=== PATIENT | female | born 1955 | race Caucasian/White ===

== ENCOUNTER 2018-03-07 11:03 | Inpatient (IN) ==
--- NOTE | 2018-03-07 14:34 | Internal Med Progress Note ---
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 Patient was transferred to this facility for rehabilitation due to her unstable gait and balance. Patient states that she has noticed a slight weakness to her right extremities over the past several weeks, during which time she has noticed that she has difficulty holding objects at times such as coffee cups and that her fine motor skills, such as writing have been worsening. Patient states that during that time period that she had had an accidental bump to the head and believe that she might of had a subdural hematoma and so she sought out medical evaluation. Patient was evaluated an 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 Patient states that she was seen at [place] where she had a biopsy performed and received cortical steroid treatment to reduce cerebral edema surrounding the brainstem lesion. Patient states that her pathology report remains pending at time of her discharge. She states that she believes that her balance and vision may have slightly worsened postoperatively. Patient states that her vision has had some changed over she has trouble focusing on her right lateral visual field, but denies any visual cut. She currently denies any discomforts or shortness of breath. Patient also denies any deficits in sensory or motor strength. - Constitutional Vitals: Temp Pulse Resp BP Pulse Ox 98.0 F 61 18 120/66 98 03/07/18 13:51 03/07/18 13:51 03/07/18 13:51 03/07/18 13:51 03/07/18 13:51 Consult Discharge Plan - Plan Referrals: Annie Solomon, [employer] H[employer]IES TEACHER [Primary Care Provider] -
--- NOTE | 2018-03-07 14:36 | Internal Med History&Physical ---
Date of Encounter: 03/07/18 Time of Encounter: 14:35 Assessment and Plan (1) Brain stem lesion Current visit: Yes Status: Acute Patient was admitted to this facility for rehabilitation due to her gait imbalance secondary to her brain stem lesion. 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 Patient was transferred [place] where she received corticosteroid therapy and had a biopsy performed. Pathology remains pending. Patient has had slight exacerbation of symptoms postoperatively and was transferred here for further therapy. No motor or sensory deficits noted on exam. Patient continues to have some issues with focusing on her right lateral filled, but no cuts noted patient was positive on Romberg's with imbalance noted almost mutely after closing her eyes. Noted some difficulty with finger to nose exam on her right extremity. Patient denies any other neurological deficits. Left occipital biopsy incision remains dry and intact. We will continue with current cortical steroids. Physical therapy evaluation pending. We will continue with current plan of care. (2) Arthritis Current visit: Yes Status: Acute No acute issues. Patient states history of arthritis and long-term use of Humira. 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 Patient was transferred from [facility] after being evaluated and treated. He states that over the past several weeks she has experienced difficulty with her balance and a slight right lateral visual deficit. Patient states that while at home she had experienced a bump to the head in January and later noticed that she does have difficulty with her balance. Patient states that she was also having difficulty with some coordination on the right side, resulting in difficulty in grasping and and fine motor movement, such as writing. She then went to see her physician thinking that she could possibly have had a intracranial bleed resulting from the bump of the head and the previous weeks. Patient had an MRI that was performed which showed a brainstem lesion and she was then transferred to [facility] for further evaluation and treatment. While at [place] she received cortical steroid therapy due to mild cerebral edema surrounding the lesion and later had a biopsy performed surgically performed. Patient states her lesion was deemed inoperable and she states that at time of discharge her pathology has not been resulted. Patient was transferred to this facility due to her gait imbalance for further rehabilitation by PT/OT. Patient states that her further treatment is pending her pathology per neurosurgery/oncology. Patient states that she believes postoperatively that her symptoms may have worsened slightly. She states that on her right lateral vision that she has some difficulty with focusing but denies any visual cut. Patient denies any motor deficits but states that she does have difficulty with some coordination on the right hand and with her balance. Patient currently denies any discomforts or shortness of breath. Patient denies any sensory deficits. Past Med Surg Social Fam HX - Past Medical History Medical history: arthritis Psychiatric history: no psych history - Social History Smoking Status: Current some day smoker Smokeless Tobacco Status: No Alcohol use: none Drug use: none Internal Medicine - H&P: Meds Humira Crohn's 03/22/15 [History] Ondansetron [Zofran] 8 mg PO TID PRN #9 tablet 03/22/15 [Rx] Vancomycin Oral Soln [Vancocin] 125 mg PO QID #40 mls 03/22/15 [Rx] metroNIDAZOLE [Flagyl] 500 mg PO BID #14 tablet 03/22/15 [Rx] 3 Allergy/AdvReac Type Severity Reaction Status Date / Time No Known Allergies Allergy Verified 03/22/15 11:38 All Systems PM: A 10-system review of systems was performed and is negative for pertinent findings except as documented above in the HPI. - Constitutional Constitutional: as per HPI, no chills, no fever(s), no night sweats - EENT Eyes: as per HPI, blurry vision, other visual disturbances, no change in vision , no discharge, no pain, no photophobia Ears: no ear discharge, no ear pain, no tinnitus Nose, mouth and throat: no dysphagia, no nasal discharge, no neck pain, no sore throat - Cardiovascular Cardiovascular ROS IM: as per HPI, no chest pain, no diaphoresis, no dyspnea, no lightheadedness, no palpitations, no syncope - Respiratory Respiratory: as per HPI, no cough, no dyspnea, no wheezing, no excessive phlegm production - Gastrointestinal Gastrointestinal: no abdominal pain, no diarrhea, no hematemesis, no hematochezia, no melena, no nausea, no vomiting - Genitourinary Genitourinary: no change in urinary stream, no dysuria, no flank pain, no hematuria - Musculoskeletal Musculoskeletal ROS IM: as per HPI, no numbness, no tingling - Integumentary Integumentary IM: no rash, no unusual bruising - Neurological Neurological ROS: as per HPI, no confusion, no convulsions, no focal weakness, no numbness, no tingling, no tremor(s) - Hematologic/Lymphatic Hematologic/Lymphatic: no easy bruising - Constitutional Vitals: Temp Pulse Resp BP Pulse Ox 98.0 F 61 18 120/66 98 03/07/18 13:51 03/07/18 13:51 03/07/18 13:51 03/07/18 13:51 03/07/18 13:51 General appearance: Present: A&O X 3, pleasant - Head Head exam: Present: atraumatic, normocephalic - Eye Eye exam: Present: PERRL, conjuntiva pink, sclera anicteric Pupils: Present: PERRL - Neck Neck exam general surgery: Present: supple, trachea midline. Absent: lymphadenopathy Additional comments: Patient has a small incision to the left lower occipital area which is dry and intact. No erythema or ecchymosis noted surrounding the incision. - Respiratory Respiratory exam: Present: CTAB. Absent: accessory muscle use, rales, rhonchi, wheezes - Cardiovascular Cardiovascular exam: Present: RRR, +S1, +S2. Absent: diastolic murmur, gallop, rubs, systolic murmur - GI/Abdominal GI/Abdominal exam: Present: normal bowel sounds, soft, no peritoneal signs. Absent: distended, tenderness - Extremities Exam Extremities exam: Present: warm, radial pulses palpable and symmetrical. Absent : calf tenderness, cyanotic, pedal edema - Neurological Exam Neurological exam: Present: CN II-XII intact, oriented X3. Absent: pronater drift, facial droop, speech deficit Additional comments: CN 2-12 intact. Patient BAL with equal 5/5 strength. Speech is clear and appropriate. No facial droop. Tongue is midline. Noted to have some difficulty with finger to nose coordination on her right. PERRLA 3mm brisk. No visual field cut noted. No sensory deficit noted. Patient shows positive Romberg, showing imbalance almost immediately after closing her eyes. - Skin Skin exam: Present: dry, intact
[2018-03-07] MEDS ORDERED: Mag Hydrox/Al Hydrox/Simeth 30 ML UDC PO PRN (15:44)
[2018-03-07] MEDS ORDERED: Adalimumab [Humira] 40 MG SQ SCH (15:45)
[2018-03-07] MEDS: *HR* OxyCODONE/APAP 5/325 TABLET PO PRN (21:59)
[2018-03-07] MEDS: Famotidine 20 MG TABLET PO SCH (22:00)
[2018-03-08 06:36] LABS: Basophils % 0.4 %; Eosinophils # 0.1 K/mcL (0.0-0.6); Eosinophils % 1.5 %; Hematocrit 34.6 % (35.3-44.9); Hemoglobin 11.7 g/dL (11.5-15.4); Lymphocytes # 2.9 K/mcL (0.6-4.6); Lymphocytes % 35.7 %; Mean Corpuscular HGB Conc 33.8 g/dL (31.6-35.5); Mean Corpuscular Hemoglobin 33.3 pg (28.0-33.3); Mean Corpuscular Volume 98.6 fL (83.0-100.0); Mean Platelet Volume 9.8 fL (9.4-12.4); Monocytes # 0.9 K/mcL (0.0-1.3); Monocytes % 10.7 %; Neutrophils # 4.1 K/mcL (1.6-8.9); Platelet Count 287 K/mcL (140-400); Red Blood Count 3.51 M/mcL (3.82-4.97); Red Cell Distribution Width 13.2 % (11.5-14.5); Segmented Neutrophils % 50.7 %
[2018-03-08 06:41] LABS: Prothrombin Time 11.4 Seconds (9.4-12.1)
[2018-03-08 06:54] LABS: Alanine Aminotransferase 15 Units/L (7-52); Albumin 3.7 g/dL (3.5-5.7); Albumin/Globulin Ratio 1.5 (1.1-2.2); Alkaline Phosphatase 55 Units/L (34-104); Aspartate Amino Transferase 16 Units/L (13-39); BUN/Creatinine Ratio 20 (6-26); Bilirubin,Total 0.4 mg/dL (0.3-1.0); Blood Urea Nitrogen 15 mg/dL (8-23); Calcium 9.3 mg/dL (8.6-10.3); Carbon Dioxide 28 mEq/L (23-29); Chloride 103 mEq/L (98-107); Globulin 2.4 g/dL (2.4-3.5); Glucose 132 mg/dL (70-105); Osmolality,Calculated 289 (280-300); Sodium 138 mEq/L (136-145); Total Protein 6.1 g/dL (6.4-8.9); eGFR For Non-African Americans > 60 (> 60)
[2018-03-08] MEDS: Ondansetron ODT 4 MG TAB.RAPDIS SL PRN (08:03)
[2018-03-08] MEDS: *HR* OxyCODONE/APAP 5/325 TABLET PO PRN ×2 (09:32→22:08)
--- NOTE | 2018-03-08 09:32 | Internal Med Progress Note ---
Date of Encounter: 03/08/18 Time of Encounter: 09:29 - Assessment and plan (1) Brain stem lesion Current Visit: Yes Status: Acute Assessment and plan: No acute neurological changes noted in exam since yesterday. Patient continues to complain of balance issues and some disturbance in right lateral field focusing. He shows slight decrease in coordination on right extremity. Patient quickly fails Romberg test. No other focal deficits noted on exam. Patient will continue with physical therapy with current evaluation pending. Patient is to continue on cortical steroids per neurosurgery. Pathology continues to be pending. Patient will continue follow-up with neurosurgery. (2) Arthritis Current Visit: Yes Status: Chronic Assessment and plan: No acute issues. Patient denies any arthritic type discomforts. We will continue with current medications - Time Spent With Patient less than 15 minutes - Subjective Interval history: Patient appears relaxed and currently states that she has had some tenderness to her left occipital area incision. Surgical incision appears dry and intact with no signs of ecchymosis but noted slight tenderness during palpation. Patient states that the pain increases during movement. Patient states that she took Tylenol this morning with some effectiveness. Denies any acute neurological changes. States that she continues to have issues with her balance and right visual field. - Constitutional Vitals: Temp Pulse Resp BP Pulse Ox 98.4 F 59 18 113/68 98 03/08/18 08:00 03/08/18 08:00 03/08/18 08:00 03/08/18 08:00 03/08/18 08:00 General appearance: Present: A&O X 3, pleasant - Head Head exam: Present: atraumatic, normocephalic - Eye Eye exam: Present: PERRL, conjuntiva pink, sclera anicteric Pupils: Present: PERRL - Neck Neck exam general surgery: Present: supple, trachea midline. Absent: lymphadenopathy Additional comments: Patient has a biopsy surgical incision to the left upper neck along the occipital area that appears dry and intact with no ecchymosis or erythema noted. Slight tenderness on palpation. - Respiratory Respiratory exam: Present: CTAB. Absent: accessory muscle use, rales, rhonchi, wheezes - Cardiovascular Cardiovascular exam: Present: RRR, +S1, +S2. Absent: diastolic murmur, gallop, rubs, systolic murmur - GI/Abdominal GI/Abdominal exam: Present: normal bowel sounds, soft, no peritoneal signs. Absent: distended, tenderness - Extremities Exam Extremities exam: Present: warm, radial pulses palpable and symmetrical. Absent : calf tenderness, cyanotic, pedal edema - Neurological Exam Neurological exam: Present: CN II-XII intact, oriented X3, no focal deficits. Absent: pronater drift, facial droop, speech deficit Additional comments: Patient continues to complain of balance issues when standing. Noted difficulty with focusing objects and right lateral visual field but no visual cut noted. PERRLA. Patient continues to have some difficulty with fine motor coordination on the right and was noted to have slight deficit during finger to nose examination. Patient moves all extremities with equal strength of 5/5 muscle strength. Denies any decreased sensation. Patient continues to fail Romberg's test - Skin Skin exam: Present: dry, intact Internal Medicine: Result - Labs CBC & Chem 7: 03/08/18 06:05 03/08/18 06:05 Labs: Short CBC 03/08/18 Range/Units 06:05 WBC 8.1 (4.3-11.1) K/mcL Hgb 11.7 (11.5-15.4) g/dL Hct 34.6 L (35.3-44.9) % Plt Count 287 (140-400) K/mcL Neutrophils # 4.1 (1.6-8.9) K/mcL BMP 03/08/18 06:05 Sodium 138 Potassium 4.0 Chloride 103 Carbon Dioxide 28 BUN 15 Creatinine 0.74 Glucose 132 H Calcium 9.3 Liver Function 03/08/18 Range/Units 06:05 Total Bilirubin 0.4 (0.3-1.0) mg/dL AST 16 (13-39) Units/L ALT 15 (7-52) Units/L Alkaline Phosphatase 55 (34-104) Units/L Albumin 3.7 (3.5-5.7) g/dL - ABG Interpretation ABG results: PT/INR, D-dimer PT 11.4 Seconds (9.4-12.1) 03/08/18 06:05 Consult Discharge Plan - Plan Referrals: Annie Solomon, [employer] SALESPERSON [Primary Care Provider] -
[2018-03-08] MEDS: predniSONE 1 MG TABLET PO SCH (09:33)
[2018-03-08] MEDS: Lactobacillus 1 EACH CAP.SPRINK PO SCH (09:33)
[2018-03-08] MEDS: Multivit/Ca/Min/Fe/FA 1 TAB TABLET PO SCH (09:33)
[2018-03-08] MEDS: Famotidine 20 MG TABLET PO SCH ×2 (09:33→22:08)
[2018-03-08] MEDS: Biotin [Biotin] 1,000 MCG PO SCH (09:34)
[2018-03-09] MEDS: Ondansetron ODT 4 MG TAB.RAPDIS SL PRN ×2 (02:39→14:30)
[2018-03-09] MEDS: Biotin [Biotin] 1,000 MCG PO SCH (09:16)
[2018-03-09] MEDS: predniSONE 1 MG TABLET PO SCH (10:21)
[2018-03-09] MEDS: Lactobacillus 1 EACH CAP.SPRINK PO SCH (10:21)
[2018-03-09] MEDS: Multivit/Ca/Min/Fe/FA 1 TAB TABLET PO SCH (10:22)
[2018-03-09] MEDS: Famotidine 20 MG TABLET PO SCH ×2 (10:22→20:24)
[2018-03-09] MEDS: traMADol 50 MG TABLET PO PRN ×2 (13:20→20:24)
--- NOTE | 2018-03-09 13:46 | Internal Med Progress Note ---
Date of Encounter: 03/09/18 Time of Encounter: 13:44 - Assessment and plan (1) Brain stem lesion Current Visit: Yes Status: Acute Assessment and plan: This seems to be only her a headache related to uncertain etiology. We will follow and try mild opioids in the form of Ultram. If worsens or certainly if she develops any new neurologic changes, will obtain CT of the head. (2) Arthritis Current Visit: Yes Status: Chronic Assessment and plan: This seems quiet, for now. Note: This is psoriatic arthritis per history. - Subjective Interval history: Patient has a severe, generalized headache which is making her feel tired. She has been sleeping a lot, per nursing. She denies any focal neurologic symptoms or change in other symptoms of unsteadiness. Has no focal infectious symptoms, either. Bowels and bladder are without change. She was nauseated this morning but feels it was related to headache pain. We discussed treatment and we will use Ultram for now. If this does not help, consider IV hydration and/or other opioids. While she feels hot, she has not had sweats. I discussed at length with patient and . There is no focal change to suggest that we are missing any tumor advancement, etc. I informed nursing that if she has any neurologic change I should be notified, immediately. Patient has no complaint of chest discomfort, dyspnea, orthopnea, palpitations, nausea or vomiting, constipation or diarrhea, other changes in bowel habits, difficulty with urination, rash or itching, or other new complaints, except as mentioned above. Review of systems is otherwise negative. I discussed management of her care with nursing staff. - Constitutional Vitals: Temp Pulse Resp BP Pulse Ox 98.9 F 69 16 117/66 96 03/09/18 07:58 03/09/18 07:58 03/09/18 07:58 03/09/18 07:58 03/09/18 07:58 General appearance: Present: pleasant Exam: Examination: (Except as mentioned above): General: In no apparent distress. Alert and oriented 3. Nondiaphoretic. Head: Atraumatic and normocephalic. Respiratory: No use of accessory muscles. Lungs are clear throughout. Normal airflow. Cardiovascular: Regular rate and rhythm without murmur appreciated. Abdomen: Bowel sounds are normal. No hepatosplenomegaly mass or tenderness appreciated. Obese and therefore difficult to palpate deeply. Extremities: No cyanosis clubbing or edema. Neurologic: No focal deficits including vision to confrontation, etc. Skin: Warm and non-diaphoretic with no new lesions noted. Internal Medicine: Result - Labs CBC & Chem 7: 03/08/18 06:05 03/08/18 06:05 - ABG Interpretation ABG results: PT/INR, D-dimer PT 11.4 Seconds (9.4-12.1) 03/08/18 06:05 Consult Discharge Plan - Plan Referrals: Annie Solomon, INTERNAL CONTROL CONSULTANT [Primary Care Provider] -
[2018-03-09] MEDS ORDERED: *HR* Promethazine 25 MG/ML VIAL IM PRN (18:45)
[2018-03-09 19:35] LABS: Basophils % 0.4 %; Eosinophils % 0.4 %; Hematocrit 35.7 % (35.3-44.9); Hemoglobin 12.2 g/dL (11.5-15.4); Immature Granulocytes % 0.4 % (0-4); Lymphocytes # 2.1 K/mcL (0.6-4.6); Mean Corpuscular HGB Conc 34.2 g/dL (31.6-35.5); Mean Corpuscular Hemoglobin 33.1 pg (28.0-33.3); Mean Corpuscular Volume 96.7 fL (83.0-100.0); Mean Platelet Volume 9.6 fL (9.4-12.4); Monocytes # 0.8 K/mcL (0.0-1.3); Neutrophils # 8.2 K/mcL (1.6-8.9); Platelet Count 290 K/mcL (140-400); Red Blood Count 3.69 M/mcL (3.82-4.97); Red Cell Distribution Width 12.5 % (11.5-14.5); Segmented Neutrophils % 72.8 %
[2018-03-09] MEDS: *HR* Promethazine 25 MG/ML VIAL IVP PRN (20:26)
[2018-03-09] MEDS: 0.9 % Sodium Chloride 1,000 ML IVC SCH (20:42)
[2018-03-10] MEDS: *HR* Promethazine 25 MG/ML VIAL IVP PRN (02:02)
[2018-03-10] MEDS: 0.9 % Sodium Chloride 1,000 ML IVC SCH (05:34)
[2018-03-10] MEDS: predniSONE 1 MG TABLET PO SCH (08:09)
[2018-03-10] MEDS: Multivit/Ca/Min/Fe/FA 1 TAB TABLET PO SCH (08:09)
[2018-03-10] MEDS: Famotidine 20 MG TABLET PO SCH ×2 (08:09→21:18)
[2018-03-10] MEDS: Biotin [Biotin] 1,000 MCG PO SCH (08:09)
[2018-03-10] MEDS: Lactobacillus 1 EACH CAP.SPRINK PO SCH (08:09)
[2018-03-10 08:40] LABS: Bilirubin,Urine Negative (Negative); Blood,Urine Small (Negative); Clarity,Urine Clear (Clear); Color,Urine Yellow (Yellow); Glucose,Urine (UA) Normal (Normal); Ketones,Urine Trace mg/dL (Negative); Leukocyte Esterase,Urine Negative (Negative); Nitrite,Urine Negative (Negative); Protein,Urine Negative (Neg-Trace); Specific Gravity,Urine 1.025 (1.010-1.025); Urobilinogen,Urine Normal (Normal)
[2018-03-10 09:36] LABS: RBC,Urine 0-3 per hpf (0-3); Squamous Epithelial Cell,Urine Few per lpf (None-Few); WBC,Urine 0-3 per hpf (0-3)
[2018-03-10 10:59] LABS: Alanine Aminotransferase 10 Units/L (7-52); Albumin/Globulin Ratio 1.5 (1.1-2.2); Alkaline Phosphatase 65 Units/L (34-104); Aspartate Amino Transferase 13 Units/L (13-39); BUN/Creatinine Ratio 19 (6-26); Bilirubin,Total 0.6 mg/dL (0.3-1.0); Blood Urea Nitrogen 12 mg/dL (8-23); Calcium 9.7 mg/dL (8.6-10.3); Carbon Dioxide 29 mEq/L (23-29); Chloride 100 mEq/L (98-107); Globulin 2.7 g/dL (2.4-3.5); Glucose 103 mg/dL (70-105); Magnesium 1.9 mg/dL (1.6-2.6); Osmolality,Calculated 280 (280-300); Potassium 4.3 mEq/L (3.5-5.1); Sodium 135 mEq/L (136-145); Total Protein 6.7 g/dL (6.4-8.9); eGFR For Non-African Americans > 60 (> 60)
[2018-03-10 11:17] LABS: Basophils % 0.3 %; Eosinophils % 0.3 %; Hemoglobin 11.8 g/dL (11.5-15.4); Immature Granulocytes % 0.5 % (0-4); Lymphocytes # 2.1 K/mcL (0.6-4.6); Lymphocytes % 24.3 %; Mean Corpuscular HGB Conc 33.7 g/dL (31.6-35.5); Mean Corpuscular Hemoglobin 33.1 pg (28.0-33.3); Mean Platelet Volume 9.7 fL (9.4-12.4); Monocytes # 0.5 K/mcL (0.0-1.3); Monocytes % 6.1 %; Platelet Count 311 K/mcL (140-400); Red Blood Count 3.57 M/mcL (3.82-4.97); Red Cell Distribution Width 12.5 % (11.5-14.5); Segmented Neutrophils % 68.5 %
--- NOTE | 2018-03-10 13:21 | Internal Med Progress Note ---
Date of Encounter: 03/10/18 Time of Encounter: 13:17 - Assessment and plan (1) Brain stem lesion Current Visit: Yes Status: Acute Assessment and plan: Today patient has had complaints of headache and nausea that accompany her when she is up out of bed ambulating. Patient has been giving Zofran for complaints of nausea. Patient states that she received medication for headache which this morning has resolved somewhat. Patient continues to have difficulty with balance and fine motor movement on right. Continue complaints of difficulty focusing on right lateral visual field. No other acute neurological changes noted on exam. CT of scan showed no change in tumor characteristics and no sign of hemorrhage. Continued mass effect on fourth ventricle with no sign of hydrocephalus. Labs reviewed which shows WBC count back down to 8. Sedimentation rate pending. Afebrile. We will continue with physical therapy and continue to monitor closely. (2) Arthritis Current Visit: Yes Status: Chronic Assessment and plan: No acute issues. Patient denies any arthritic type discomforts. We will continue with current medications (3) Urinary retention Current Visit: Yes Status: Acute Assessment and plan: Patient had shown some urinary retention yesterday having difficulty initiating stream. Patient did finally urinate this morning which showed a high residual of 500 mL on bladder scan. Patient had postvoid bladder scan is done after her next 2 voidings which showed less than 200. Urine was sent for urinalysis. Patient has been afebrile. No current medications noted that when effect her on retention. Will monitor closely. Patient states no history of urinary retention - Time Spent With Patient less than 15 minutes - Subjective Interval history: Patient appears relaxed and currently states that she has had some tenderness to her left occipital area incision. Patient also has complained of a recent headache which she states currently has resolved this morning. Patient also has had complaints of nausea with vomiting, which has occurred after attempting to ambulate. Patient states she continues to have difficulty with her balance and gait. States she continues with difficulty on fine motor movement on her right arm. And patient states that she continues to have some difficulty with focusing to her right lateral visual field. Last evening she had difficulty initiating a stream when attempting to urinate and when she did urinate she was found to have a residual of greater than 500 mL on bladder scan. Patient has since urinated on 2 different occasions this morning with her post void scan showing less than 200 mL. Patient denies any difficulty initiating the stream prior to last evening. Patient also states that she has had no difficulties with nausea or headache during her hospital stays, prior to yesterday. A CAT scan was obtained last evening which continue to show some mass effect on the fourth ventricle but no signs of hydrocephalus or infectious process. Left occipital surgical incision remains intact with no erythema or drainage noted. No edema noted at surgical site, but noted slight tenderness during palpation. - Constitutional Vitals: Temp Pulse Resp BP Pulse Ox 98.9 F 67 16 138/71 96 03/10/18 11:00 03/10/18 11:00 03/10/18 11:00 03/10/18 11:00 03/10/18 11:00 General appearance: Present: A&O X 3, pleasant - Head Head exam: Present: atraumatic, normocephalic - Eye Eye exam: Present: PERRL, conjuntiva pink, sclera anicteric Pupils: Present: PERRL - Neck Neck exam general surgery: Present: supple, trachea midline. Absent: lymphadenopathy Additional comments: Left neck occipital biopsy surgical incision remains dry and intact with no erythema or ecchymosis noticed surrounding incision. No edema. Slight tenderness on palpation. - Respiratory Respiratory exam: Present: CTAB. Absent: accessory muscle use, rales, rhonchi, wheezes - Cardiovascular Cardiovascular exam: Present: RRR, +S1, +S2. Absent: diastolic murmur, gallop, rubs, systolic murmur - GI/Abdominal GI/Abdominal exam: Present: normal bowel sounds, soft, no peritoneal signs. Absent: distended, tenderness - Extremities Exam Extremities exam: Present: warm, radial pulses palpable and symmetrical. Absent : calf tenderness, cyanotic, pedal edema - Neurological Exam Neurological exam: Present: CN II-XII intact, oriented X3, no focal deficits. Absent: pronater drift, facial droop, speech deficit Additional comments: Patient continues to have difficulty with balance. On previous exam patient failed Romberg test. Patient continues to have some difficulty with finger to nose test on her right side. Noted continued difficulty with fine motor task with her right hand. Patient is right-handed. Complaints of difficulty focusing on right lateral visual field but no visual cut or palsy noted on exam. - Skin Skin exam: Present: dry, intact Internal Medicine: Result - Labs CBC & Chem 7: 03/10/18 10:40 03/10/18 10:30 Labs: Short CBC 03/09/18 03/10/18 Range/Units 19:27 10:40 WBC 11.2 H 8.8 (4.3-11.1) K/mcL Hgb 12.2 11.8 (11.5-15.4) g/dL Hct 35.7 35.0 L (35.3-44.9) % Plt Count 290 311 (140-400) K/mcL Neutrophils # 8.2 6.0 (1.6-8.9) K/mcL BMP 03/10/18 10:30 Sodium 135 L Potassium 4.3 Chloride 100 Carbon Dioxide 29 BUN 12 Creatinine 0.64 Glucose 103 Calcium 9.7 Liver Function 03/10/18 Range/Units 10:30 Total Bilirubin 0.6 (0.3-1.0) mg/dL AST 13 (13-39) Units/L ALT 10 (7-52) Units/L Alkaline Phosphatase 65 (34-104) Units/L Albumin 4.0 (3.5-5.7) g/dL Urine 03/10/18 Range/Units 07:15 Urine Color Yellow (Yellow) Urine Clarity Clear (Clear) Urine pH 6.0 (5.0-8.0) pH Units Ur Specific [place] 1.025 (1.010-1.025) Urine Protein Negative (Neg-Trace) mg/dL Urine Glucose (UA) Normal (Normal) mg/dL - ABG Interpretation ABG results: PT/INR, D-dimer PT 11.4 Seconds (9.4-12.1) 03/08/18 06:05 - Impressions Impressions Head CT 03/10/18 02:27 IMPRESSION: 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 New linear band of low attenuation in the left cerebellar hemisphere presumably reflects recent biopsy given overlying occipital kelton hole. No acute intracranial hemorrhage or territorial infarct. D/ / 03/10/2018 07:37:51 Victorino Borrero / lexi Interpreting Provider: Victorino Borrero - Diagnostic Studies CT scan - head Status: image reviewed by me Additional comments: CT scan shows no acute changes to spinal cord lesion. Continued mass effect on fourth ventricle, but continued patency. No hydrocephalus noted. No sign of acute hemorrhage Consult Discharge Plan - Plan Referrals: Annie Solomon, JAMISON [Primary Care Provider] -
[2018-03-10] MEDS: traMADol 50 MG TABLET PO PRN (21:18)
[2018-03-11] MEDS: Ondansetron ODT 4 MG TAB.RAPDIS SL PRN ×2 (01:24→22:55)
[2018-03-11] MEDS: *HR* OxyCODONE/APAP 5/325 TABLET PO PRN (01:25)
[2018-03-11] MEDS: traMADol 50 MG TABLET PO PRN ×2 (05:42→16:51)
[2018-03-11] MEDS: *HR* Promethazine 25 MG/ML VIAL IVP PRN (05:50)
[2018-03-11] MEDS ORDERED: *HR* Morphine 2 MG/ML SYRINGE IVP ONE (07:07)
[2018-03-11] MEDS ORDERED: *HR* OxyCODONE/APAP 5/325 TABLET PO PRN ×2 (07:08)
[2018-03-11] MEDS: Multivit/Ca/Min/Fe/FA 1 TAB TABLET PO SCH (09:22)
[2018-03-11] MEDS: Lactobacillus 1 EACH CAP.SPRINK PO SCH (09:22)
[2018-03-11] MEDS: Biotin [Biotin] 1,000 MCG PO SCH (09:22)
[2018-03-11] MEDS: Famotidine 20 MG TABLET PO SCH ×2 (09:22→22:55)
[2018-03-11] MEDS ORDERED: methylPREDNISolone 125 MG/2 ML VIAL IVP STA (10:40)
--- NOTE | 2018-03-11 10:55 | Internal Med Progress Note ---
Date of Encounter: 03/11/18 Time of Encounter: 10:53 - Assessment and plan (1) Brain stem lesion Current Visit: Yes Status: Acute Assessment and plan: Today patient has had complaints of headache and nausea that continues intermittently over the past 1-2 days. Patient's headache became worse today with minimal effect from oral pain medications. Patient has been giving Zofran for complaints of nausea. We will have nursing give morphine 4 mg IV 1. Patient continues to have difficulty with balance and fine motor movement on right with nursing stating that her symptoms of ataxia have increased slightly this morning when they were ambulating her to the restroom. Continue complaints of difficulty focusing on right lateral visual field. No other acute neurological changes noted on exam. CT of scan Sunday showed no change in tumor characteristics and no sign of hemorrhage. Continued mass effect on fourth ventricle with no sign of hydrocephalus. Labs reviewed which shows WBC count back down to 8. Sedimentation rate 49. Afebrile. We will continue with physical therapy and continue to monitor closely. We will discuss with Dr. Arguello who is currently evaluating patient Patient has upcoming follow-up with radiation oncology later this week. (2) Arthritis Current Visit: Yes Status: Chronic Assessment and plan: No acute issues. Patient denies any arthritic type discomforts. We will continue with current medications (3) Urinary retention Current Visit: Yes Status: Acute Assessment and plan: Patient again has shown some urinary retention this morning, having difficulty initiating stream. Patient had a similar incident yesterday with a postvoid bladder scan showing a high residual of 500 mL on bladder scan. This issues soon resolved later today with her postvoid bladder scan later today show a minimal residual. Patient has been afebrile. Urinalysis was obtained which showed no infectious process. No current medications noted that when effect her on retention. Will monitor closely and repeat post void latter scan. Patient states no history of urinary retention - Subjective Interval history: Patient appears somewhat drowsy but is easily awakened. Patient has had a throbbing pressure type headache that has been intermittently present over the past 24-48 hours. Patient states that she has had minimal response from her oral pain medications and this morning her headache seems slightly worse. Patient describes the pain as a pressure type pain with occasional sharp waves. Patient denies any acute neurological changes but nursing states that they have noticed the patient has had increased ataxia. Patient denies any visual changes. - Constitutional Vitals: Temp Pulse Resp BP Pulse Ox 98.2 F 55 9 140/60 91 03/11/18 10:24 03/11/18 10:24 03/11/18 10:24 03/11/18 10:24 03/11/18 10:24 General appearance: Present: A&O X 3, pleasant - Head Head exam: Present: atraumatic, normocephalic - Eye Eye exam: Present: PERRL, conjuntiva pink, sclera anicteric Pupils: Present: PERRL - Neck Neck exam general surgery: Present: supple, trachea midline. Absent: lymphadenopathy Additional comments: Left occipital surgical incision remains intact with no ecchymosis, erythema or edema noted. Patient complaints of slight tenderness on palpation. - Respiratory Respiratory exam: Present: CTAB. Absent: accessory muscle use, rales, rhonchi, wheezes - Cardiovascular Cardiovascular exam: Present: RRR, +S1, +S2. Absent: diastolic murmur, gallop, rubs, systolic murmur - GI/Abdominal GI/Abdominal exam: Present: normal bowel sounds, soft, no peritoneal signs. Absent: distended, tenderness - Extremities Exam Extremities exam: Present: warm, radial pulses palpable and symmetrical. Absent : calf tenderness, cyanotic, pedal edema - Neurological Exam Neurological exam: Present: CN II-XII intact, oriented X3. Absent: pronater drift, facial droop, speech deficit Additional comments: Patient appears slightly drowsy, but easily awakened. Remains oriented and appropriate. Speech is clear. No facial droop and tongue is midline. No nuchal rigidity noted. No facial tenderness. CN II through XII remains intact. Patient continues to have difficulty focusing on right lateral visual field but no visual cut noted. No palsy with eye movement and patient continues to have excellent accommodation. No drift. Romberg was deferred, but patient has failed Romberg test on several occasions. Moves all extremities with equal 5/5 strength but noted difficulty with fine motor on right hand. - Skin Skin exam: Present: dry, intact Internal Medicine: Result - Labs CBC & Chem 7: 03/10/18 10:40 03/10/18 10:30 Labs: Short CBC 03/10/18 Range/Units 10:40 WBC 8.8 (4.3-11.1) K/mcL Hgb 11.8 (11.5-15.4) g/dL Hct 35.0 L (35.3-44.9) % Plt Count 311 (140-400) K/mcL Neutrophils # 6.0 (1.6-8.9) K/mcL BMP 03/10/18 10:30 Sodium 135 L Potassium 4.3 Chloride 100 Carbon Dioxide 29 BUN 12 Creatinine 0.64 Glucose 103 Calcium 9.7 Liver Function 03/10/18 Range/Units 10:30 Total Bilirubin 0.6 (0.3-1.0) mg/dL AST 13 (13-39) Units/L ALT 10 (7-52) Units/L Alkaline Phosphatase 65 (34-104) Units/L Albumin 4.0 (3.5-5.7) g/dL - ABG Interpretation ABG results: PT/INR, D-dimer PT 11.4 Seconds (9.4-12.1) 03/08/18 06:05 - Impressions Impressions Head CT 03/10/18 02:27 IMPRESSION: 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 New linear band of low attenuation in the left cerebellar hemisphere presumably reflects recent biopsy given overlying occipital kelton hole. No acute intracranial hemorrhage or territorial infarct. D/ / 03/10/2018 07:37:51 Victorino Borrero / lexi Interpreting Provider: Victorino Borrero Consult Discharge Plan - Plan Referrals: Annie Solomon, [employer]ER [Primary Care Provider] -
[2018-03-11] MEDS: 0.9 % Sodium Chloride 1,000 ML IVC SCH (12:42)
[2018-03-11] MEDS: predniSONE 1 MG TABLET PO SCH (12:42)
--- NOTE | 2018-03-11 14:40 | Physcial Medicine-Consult Note ---
Date of Encounter: 03/11/18 Time of Encounter: 14:35 Physical Medicine - AP (1) Brain stem lesion Status: Acute Assessment and plan: We will finish her IPR with family ED. Plan to discharge soon Continue steroids. Pt. is not eating due to nausea. Add supplements. Code(s): G93.9 - Disorder of brain, unspecified SNOMED Code(s): 549886479 Physical Medicine - HPI - Data of Consult Requesting Physician: Bear Arguello MD Primary Care Provider: Annie Solomon CNP - Consult Narrative History of present illness: Ms. Martinez is a 62 year old RH female who was admitted to this facility for gait imbalance secondary to a brain stem lesion. Patient was transferred from [facility] after being evaluated and treated. He states that over the past several weeks she has experienced difficulty with her balance and a slight right lateral visual deficit. Patient states that while at home she had experienced a bump to the head in January and later noticed that she does have difficulty with her balance. Patient states that she was also having difficulty with some coordination on the right side, resulting in difficulty in grasping and and fine motor movement, such as writing. She then went to see her physician thinking that she could possibly have had a intracranial bleed resulting from the bump of the head and the previous weeks. Patient had an MRI that was performed which showed a brainstem lesion and she was then transferred to [facility] for further evaluation and treatment. While at [place] she received cortical steroid therapy due to mild cerebral edema surrounding the lesion and later had a biopsy performed surgically performed. 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 Ely's OP Note. Patient states her lesion was deemed inoperable and she states that at time of discharge her final pathology was not complete as of the writing of this document. Patient was transferred to this facility due to her gait imbalance for further rehabilitation by PT/OT. Patient states that her further treatment is pending her pathology per neurosurgery/oncology. Patient states that she believes postoperatively that her symptoms may have worsened slightly. She states that on her right lateral vision that she has some difficulty with focusing but denies any visual cut. Patient denies any motor deficits but states that she does have difficulty with some coordination on the right hand and with her balance. Patient currently has headache and marginal balance. Steroids have been restarted. Pt is on Pepcid BID. CC: Bear Arguello MD Past Med Surg Social Fam HX - Past Medical History Attestation: Yes The following information was validated with the patient. Medical history: arthritis Additional medical history: arthritis, acid rreflux Psychiatric history: no psych history - Past Surgical History Additional surgical history: right knee-2012, T&A, fractured collar bone - Social History Smoking Status: Current some day smoker Smokeless Tobacco Status: No Alcohol use: none Drug use: none Medications and Allergies Humira Crohn's 03/22/15 [History] Ondansetron [Zofran] 8 mg PO TID PRN #9 tablet 03/22/15 [Rx] Vancomycin Oral Soln [Vancocin] 125 mg PO QID #40 mls 03/22/15 [Rx] metroNIDAZOLE [Flagyl] 500 mg PO BID #14 tablet 03/22/15 [Rx] Acetaminophen [Tylenol] 500 mg PO Q6HR PRN 03/07/18 [History] Adalimumab [Humira] 40 mg SQ Q14D 03/07/18 [History] Biotin [Biotin] 1,000 mcg PO DAILY 03/07/18 [History] Culturelle 1 mg PO DAILY 03/07/18 [History] Famotidine [Pepcid] 20 mg PO BID 03/07/18 [History] PredniSONE 1 mg PO DAILY 03/07/18 [History] Thera M Plus 1 mg PO DAILY 03/07/18 [History] 3 Allergy/AdvReac Type Severity Reaction Status Date / Time No Known Allergies Allergy Verified 03/22/15 11:38 All systems: reviewed and no additional remarkable complaints except as stated Physical Medicine - Exam - Constitutional Vitals: Temp Pulse Resp BP Pulse Ox 98.2 F 55 9 140/60 91 03/11/18 10:24 03/11/18 10:24 03/11/18 10:24 03/11/18 10:24 03/11/18 10:24 General appearance: cooperative, no acute distress, obese - Head Additional comments: Occipital kelton hole - Eye Eye exam: Present: EOMI - ENT ENT exam: Present: mucous membranes moist Additional comments: Tongue protrudes midline - Neck Neck exam: Present: normal inspection - Respiratory Respiratory exam: Present: CTAB - Cardiovascular Cardiovascular exam: Present: RRR. Absent: gallop, rubs, systolic murmur - GI/Abdominal GI/Abdominal exam: Present: normal bowel sounds, soft - Extremities Exam Extremities exam: Present: full ROM, normal capillary refill Additional comments: Strength 4/5 throughout - Neurological Exam Neurological exam: Present: abnormal gait, alert, CN II-XII intact, oriented X3 , reflexes normal. 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 New linear band of low attenuation in the left cerebellar hemisphere presumably reflects recent biopsy given overlying occipital kelton hole. No acute intracranial hemorrhage or territorial infarct. D/ / 03/10/2018 07:37:51 Victorino Borrero / lexi Interpreting Provider: Victorino Borrero Consult Discharge Plan - Plan Referrals: Annie Solomon, DIETARY COOK [Primary Care Provider] -
[2018-03-11] MEDS: methylPREDNISolone 125 MG/2 ML VIAL IVP SCH ×2 (16:52→22:56)
[2018-03-12] MEDS: methylPREDNISolone 125 MG/2 ML VIAL IVP SCH ×2 (05:04→10:17)
[2018-03-12 07:16] VITALS: BP 123/68
--- NOTE | 2018-03-12 09:00 | Discharge Summary ---
Date of Encounter: 03/12/18 Time of Encounter: 08:58 - Discharge Diagnosis (1) Brain stem lesion Priority: Primary Status: Acute Comments: Was given IV steroids yesterday for headache. This has resolved. States slept well last night and feeling great today. Patient does have a menace and 4th ventricle. Has occasional loss of balance and difficulty with fine motor movement. Also has right lateral visual field difficulties. Scheduled to follow up with radiation oncology this week. (2) Arthritis Priority: Secondary Status: Chronic Comments: Controlled. Continue current medications. Hospital course: Ms. Martinez is a 62 year old female discharging to home with family after being here for physical therapy and deconditioning. Has a mass in the ventricle. Does have issues with balance, fine motor movement and right lateral visual field cut. Patient is scheduled for follow-up radiation oncology this week. Did develop a bad headache yesterday which was relieved with IV steroids. Nausea was relieved with Zofran. Patient denies any current complaints today. States slept well last night. Family at bedside. Patient is anxious to go home. Discharge discussed with: patient, family, nurse, social work - Time Spent with Patient Total time spent providing and/or coordinating discharge services: Less than 30 minutes - Discharge Medications Home Medications: Humira Crohn's 03/22/15 [History] Ondansetron [Zofran] 8 mg PO TID PRN #9 tablet 03/22/15 [Rx] Acetaminophen [Tylenol] 500 mg PO Q6HR PRN 03/07/18 [History] Adalimumab [Humira] 40 mg SQ Q14D 03/07/18 [History] Biotin 1,000 mcg PO DAILY 03/07/18 [History] Culturelle 1 mg PO DAILY 03/07/18 [History] Famotidine [Pepcid] 20 mg PO BID 03/07/18 [History] PredniSONE 1 mg PO DAILY 03/07/18 [History] Thera M Plus 1 mg PO DAILY 03/07/18 [History] Polyethylene Glycol 3350 [MiraLAX] 17 gm PO DAILY PRN powd.pack 03/12/18 [Rx] Allergies/Adverse Reactions: 3 Allergy/AdvReac Type Severity Reaction Status Date / Time No Known Allergies Allergy Verified 03/22/15 11:38 Date of admission: 03/07/18 13:36 Primary care physician: Annie Solomon CNP Consults: 03/07/18 14:52 Consult for Pharmacy Education [CONS] Routine Reason for Consult: brain stem lesion with cortical steroid therapy Time Notified: 14:58 Call Completed: Yes Consult to Occupational Therapy [CONS] Routine Comment: Evaluate, develop and implement POC Reason for Consult: brain stem lesion Does patient have active BEDREST order?: No Is patient medically & hemodynamically stable?: Yes Patient assessed for mobility or mobilized this visit?: Yes Consult to Physical Medicine/Rehab [CONS] Routine Reason for Consult: gait imbalance due to brain stem lesion Time Notified: 14:57 Call Completed: Yes Consult to Physical Therapy [CONS] Routine Comment: Evaluate, develop and implement POC Reason for Consult: gait imbalance due to brain stem lesion Does patient have active BEDREST order?: No Is patient medically & hemodynamically stable?: Yes Patient assessed for mobility or mobilized this visit?: Yes Consult to Software Configuration Specialist [CONS] Routine Reason for SW Consult: brain stem lesion 03/07/18 19:01 Consult to Speech Therapy [CONS] Routine Comment: Evaluate, develop and implement POC Reason for Consult: mentation change Call Completed: Yes 03/08/18 09:41 Consult to Recreational Therapy [CONS] Routine Comment: Discharging clinician: Bear Arguello Anticipated date of discharge: 03/12/18 - Constitutional Vitals: Temp Pulse Resp BP Pulse Ox 98.3 F 74 18 123/68 96 03/12/18 07:15 03/12/18 07:15 03/12/18 07:15 03/12/18 07:15 03/12/18 07:15 General appearance: Present: A&O X 3, pleasant, no acute distress, answers questions appropriately - Head Head exam: Present: atraumatic, normocephalic - Eye Eye exam: Present: PERRL, conjuntiva pink, sclera anicteric Pupils: Present: PERRL - Neck Neck exam general surgery: Present: supple, trachea midline. Absent: lymphadenopathy - Respiratory Respiratory exam: Present: CTAB. Absent: accessory muscle use, rales, rhonchi, wheezes - Cardiovascular Cardiovascular exam: Present: RRR, +S1, +S2. Absent: diastolic murmur, gallop, rubs, systolic murmur - GI/Abdominal GI/Abdominal exam: Present: normal bowel sounds, soft, no peritoneal signs. Absent: distended, tenderness - Extremities Exam Extremities exam: Present: warm, radial pulses palpable and symmetrical. Absent : calf tenderness, cyanotic, pedal edema - Neurological Exam Neurological exam: Present: alert, CN II-XII intact, oriented X3, no focal deficits, strengths equal and symetr throughout. Absent: pronater drift, facial droop, speech deficit - Skin Skin exam: Present: dry, intact - Patient Status Disposition: Home, Self-Care Condition: Good Overall status at discharge: patient is progressing back to baseline - Discharge Instructions Follow Up With: Annie Solomon ACID SPLICER [Primary Care Provider] - - Diet and Activity Activity: as per physical therapy Diet: advance to your usual diet
[2018-03-12] MEDS: Biotin [Biotin] 1,000 MCG PO SCH (09:37)
[2018-03-12] MEDS: Famotidine 20 MG TABLET PO SCH ×2 (09:37→10:25)
[2018-03-12] MEDS: Multivit/Ca/Min/Fe/FA 1 TAB TABLET PO SCH ×2 (09:37→10:25)
[2018-03-12] MEDS: Lactobacillus 1 EACH CAP.SPRINK PO SCH ×2 (09:38→10:25)
[2018-03-18] MEDS ORDERED: Adalimumab [Humira] 40 MG SQ SCH (09:00)
== END 2018-03-12 11:28 | disposition home or self-care (01) | DRG 55 ==
LOC: INPGRE 13:36